=== PATIENT | male | born 1985 | race American Indian/Alaskan Native ===

== ENCOUNTER 2016-09-14 17:29 | Emergency (ER) | payer MEDICAID, OTHER ==
[2016-09-14 17:39] VITALS: BP 118/79; PULSE 91; RESP 18; TEMP 98.1; O2SAT 99
--- NOTE | 2016-09-14 17:53 | ED PDOC ---
HPI: General Adult Time Seen by Provider: 09/14/16 17:35 Chief Complaint (Nursing): Syncope Chief Complaint (Provider): near syncope History Per: Patient (31 y/o male here with near syncope that occurred today 1 hour prior to ED arrival at work. States he had not eaten today and felt dizzy/ fell and struck head. Did not lose consciousness. Currently notes mild headache. Denies any chest pain/palpitations. Admits thc today. Cocaine last used 1 year ago. No recent alcohol use.) Past Medical History Reviewed: Historical Data, Nursing Documentation, Vital Signs Vital Signs: Last Vital Signs Temp 98.1 F 09/14/16 17:36 Pulse 91 H 09/14/16 17:36 Resp 18 09/14/16 17:36 BP 118/79 09/14/16 17:36 Pulse Ox 99 09/14/16 19:31 - Family History Family History: States: No Known Family Hx - Home Medications Home Medications: Ambulatory Orders Medication Instructions Recorded No Known Home Med 09/14/16 - Allergies Allergies/Adverse Reactions: Allergies Allergy/AdvReac Type Severity Reaction Status Date / Time No Known Allergies Allergy Verified 12/17/14 10:57 Review of Systems ROS Statement: Except As Marked, All Systems Reviewed And Found Negative Neurological: Positive for: Dizziness Physical Exam - Reviewed Nursing Documentation Reviewed: Yes Vital Signs Reviewed: Yes - Physical Exam Appears: Positive for: Well, Non-toxic, No Acute Distress Head Exam: Positive for: ATRAUMATIC, NORMAL INSPECTION, NORMOCEPHALIC Skin: Positive for: Normal Color, Warm, DRY Eye Exam: Positive for: EOMI, Normal appearance, PERRL ENT: Positive for: Normal ENT Inspection Neck: Positive for: Normal, Painless ROM Cardiovascular/Chest: Positive for: Regular Rate, Rhythm Respiratory: Positive for: CNT, Normal Breath Sounds Gastrointestinal/Abdominal: Positive for: Normal Exam, Bowel Sounds, Soft Back: Positive for: Normal Inspection Extremity: Positive for: Normal ROM Neurologic/Psych: Positive for: Alert, Oriented - Laboratory Results Result Diagrams: 09/14/16 18:20 09/14/16 18:20 - ECG O2 Sat by Pulse Oximetry: 99 - Progress ED Course And Treament: EKG: NSR 75 bpm no ectopy no acute changes J pt elevation reviewed with Dr. Stauffer TDAP 0.5 ML IM X 1 DOSE NS 1 LITER WIDE OPEN HEAD CT: FINDINGS: BRAIN: No significant acute abnormality identified. No acute hemorrhage seen within the brain. No acute extra-axial fluid collections visualized. No evidence of significant mass effect within the brain. Normal hernandez-white matter differentiation. VENTRICLES: No evidence of significant hydrocephalus. BONES/JOINTS: No acute fractures or other acute bony abnormality noted. SOFT TISSUES: Mild soft tissue swelling in the left frontal scalp laterally. SINUSES: Visualized paranasal sinuses appear clear. MASTOID AIR CELLS: Mastoid air cells appear clear. IMPRESSION: - No evidence of acute intracranial injury or fractures. - See above for remaining findings. CXR: NAD Disposition - Clinical Impression Clinical Impression: Near syncope, Laceration of head - Patient ED Disposition Is Patient to be Admitted: No - Disposition Referrals: [facility] [Outside] Disposition: Routine/Home Disposition Time: 20:00 Condition: FAIR Additional Instructions: F/U WITH ED OR PMD IN 7 TO 10 DAYS FOR REMOVAL OF ZUHAIR. Instructions: Near Syncope (ED), Staple Care (ED), Head Injury (ED) Forms: [facility] ED School/Work Excuse Procedure: Wound Repair - Time Performed Time Performed: 19:00 - Time Out Time Out: Site verified - Consent Obtained Consent obtained: Verbal - Performed by Performed by: Mid-level Provider - Indications Indication(s):: Laceration - Location Location:: Posterior, Scalp Dimensions Length cm: 1.5CM - Anesthetic Technique Local/Regional Anesthetic:: Lidocaine 2% - Complexity Complexity:: Simple (one layer) - Wound repair method Sutures:: # (THREE ZUHAIR) - Patient tolerated procedure Patient Tolerated Procedure:: Well
[2016-09-14] MEDS ORDERED: Sodium Chloride 0.9% 1,000 ML IV STA (17:57)
[2016-09-14 18:25] LABS: BASO % 0.6 % (0.0-2.0); EOS # 0.1 K/uL (0.0-0.7); EOS % 0.9 % (0.0-4.0); HEMATOCRIT 47.4 % (35.0-51.0); LYMPH # 1.5 K/uL (1.0-4.3); LYMPH % 24.1 % (20.0-40.0); MEAN CELL VOLUME 93.6 fl (80.0-94.0); MEAN CORPUSCULAR HEMOGLOBIN 30.4 pg (27.0-31.0); MEAN CORPUSCULAR HGB CONC 32.5 g/dL (33.0-37.0); MEAN PLATELET VOLUME 10.3 fl (7.2-11.7); MONO # 0.4 K/uL (0.0-0.8); MONO % 6.7 % (0.0-10.0); NEUT # 4.2 K/uL (1.8-7.0); NEUT % 67.7 % (50.0-75.0); NRBC % 0.2 % (0.0-0.0); RED CELL DISTRIBUTION WIDTH 13.8 % (11.5-14.5); WHITE BLOOD COUNT 6.2 K/uL (4.8-10.8)
[2016-09-14 18:44] LABS: ALB/GLOB RATIO 1.4 (1.0-2.1); ALKALINE PHOSPHATASE 102 U/L (38-126); ALT/SGPT 33 U/L (21-72); AST/SGOT 45 U/L (17-59); BILIRUBIN,TOTAL 0.9 mg/dl (0.2-1.3); BLOOD UREA NITROGEN 15 mg/dl (9-20); CARBON DIOXIDE 30 mmol/L (22-30); CHLORIDE 98 mmol/L (98-107); GFR AFRICAN-AMERICAN > 60; GLUCOSE,RANDOM 101 mg/dL (75-110); MAGNESIUM 2.1 MG/DL (1.6-2.3); POTASSIUM 4.6 MMOL/L (3.6-5.0); SODIUM 146 mmol/l (132-148); TOTAL PROTEIN 8.5 G/DL (6.3-8.2)
[2016-09-14] MEDS ORDERED: Lidocaine 2% Inj (20ml) ONE (18:51)
[2016-09-14] MEDS ORDERED: Lidocaine 2% Inj (20ml) SC ONE (18:53)
[2016-09-14] MEDS ORDERED: TDAP Vaccine 0.5 mL Syr IM ONE (18:53)
--- NOTE | 2016-09-14 19:28 | CT ---
EXAM: CT Head Without Intravenous Contrast. CLINICAL HISTORY: 31 years old, male; Injury or trauma and signs and symptoms; Fall; Initial encounter; Blunt trauma (contusions or hematomas); With loss of consciousness; Loss of consciousness for 30 minutes or less; Dizziness; Additional info: Head injury TECHNIQUE: Axial computed tomography images of the head/brain without intravenous contrast. This CT exam was performed using one or more of the following dose reduction techniques: automated exposure control, adjustment of the mA and/or kV according to patient size, and/or use of iterative reconstruction technique. Coronal and sagittal reformatted images were created and reviewed. EXAM DATE/TIME: 09/14/2016 5:55 PM COMPARISON: No relevant prior studies available. FINDINGS: BRAIN: No significant acute abnormality identified. No acute hemorrhage seen within the brain. No acute extra-axial fluid collections visualized. No evidence of significant mass effect within the brain. Normal hernandez-white matter differentiation. VENTRICLES: No evidence of significant hydrocephalus. BONES/JOINTS: No acute fractures or other acute bony abnormality noted. SOFT TISSUES: Mild soft tissue swelling in the left frontal scalp laterally. SINUSES: Visualized paranasal sinuses appear clear. MASTOID AIR CELLS: Mastoid air cells appear clear. IMPRESSION: - No evidence of acute intracranial injury or fractures. - See above for remaining findings.
--- NOTE | 2016-09-15 11:22 | RAD ---
HISTORY: Dizziness. Technique: Single view portable semi erect @ 18:06. COMPARISON: None. FINDINGS: LUNGS: No active pulmonary disease. PLEURA: No significant pleural effusion identified, no pneumothorax apparent. CARDIOVASCULAR: Normal. OSSEOUS STRUCTURES: No significant abnormalities. VISUALIZED UPPER ABDOMEN: Normal. OTHER FINDINGS: None. IMPRESSION: No active disease.
--- NOTE | 2016-09-15 18:56 | CARD ---
APPROVED REPORT EKG Measurement Heart [id number] <Conclusion> Normal sinus rhythm with sinus arrhythmia Minimal voltage criteria for LVH, may be normal variant Borderline ECG
== END 2016-09-14 20:18 | disposition home or self-care (01) ==
LOC: H.ER 17:29
DX: R55 Syncope and collapse (principal); S09.90XA Unspecified injury of head, initial encounter; W19.XXXA Unspecified fall, initial encounter; Y92.89 Other specified places as the place of occurrence of the external cause

== ENCOUNTER 2016-09-21 22:26 | Emergency (ER) | payer OTHER, MEDICAID ==
[2016-09-21 22:47] VITALS: BP 132/62; PULSE 55; RESP 16; TEMP 97.6; O2SAT 99
--- NOTE | 2016-09-21 22:57 | ED PDOC ---
HPI: Wound Care - HPI Time Seen by Provider: 09/21/16 22:53 Chief Complaint (Nursing): Suture/Staple Removal Chief Complaint (Provider): STAPLE REMOVAL History Per: Patient (31 Y/O MALE HERE FOR STAPLE REMOVAL. HAS HAD ZUHAIR PLACED 1 WEEK AGO AFTER HEAD INJURY S/P NEAR-SYNCOPE. PATIENT DENIES ANY REPEAT EPISODES. PLANS TO F/U WITH [facility] BUT HAS NOT.) Past Medical History Reviewed: Historical Data, Nursing Documentation, Vital Signs Vital Signs: Last Vital Signs Temp 97.6 F 09/21/16 22:45 Pulse 55 L 09/21/16 22:45 Resp 16 09/21/16 22:45 BP 132/62 09/21/16 22:45 Pulse Ox 99 09/21/16 22:45 - Family History Family History: States: No Known Family Hx - Immunization History Hx Tetanus Toxoid Vaccination: No Hx Influenza Vaccination: No Hx Pneumococcal Vaccination: No - Home Medications Home Medications: Ambulatory Orders Medication Instructions Recorded No Known Home Med 09/14/16 - Allergies Allergies/Adverse Reactions: Allergies Allergy/AdvReac Type Severity Reaction Status Date / Time No Known Allergies Allergy Verified 12/17/14 10:57 Review of Systems ROS Statement: Except As Marked, All Systems Reviewed And Found Negative Physical Exam - Reviewed Nursing Documentation Reviewed: Yes Vital Signs Reviewed: Yes - Physical Exam Appears: Positive for: Well, Non-toxic, No Acute Distress Head Exam: Positive for: NORMAL INSPECTION, NORMOCEPHALIC. Negative for: ATRAUMATIC (THREE ZUHAIR INTACT. WOUND CLEAN/NO SIGNS OF ERYTHEMA) Skin: Positive for: Normal Color, Warm, DRY Eye Exam: Positive for: EOMI, Normal appearance, PERRL ENT: Positive for: Normal ENT Inspection Neck: Positive for: Normal, Painless ROM Cardiovascular/Chest: Positive for: Regular Rate, Rhythm Respiratory: Positive for: CNT, Normal Breath Sounds Gastrointestinal/Abdominal: Positive for: Normal Exam, Bowel Sounds, Soft Back: Positive for: Normal Inspection Extremity: Positive for: Normal ROM Neurologic/Psych: Positive for: Alert, Oriented - ECG O2 Sat by Pulse Oximetry: 99 - Progress ED Course And Treament: VERBAL CONSENT PRIOR TO PROCEDURE ZUHAIR REMOVED WITHOUT DIFFICULTY. Disposition - Clinical Impression Clinical Impression: Removal of staple - Patient ED Disposition Is Patient to be Admitted: No - Disposition Referrals: [facility] [Outside] Disposition: Routine/Home Disposition Time: 22:58 Condition: FAIR Instructions: Staple Care (ED)
== END 2016-09-21 23:00 | disposition home or self-care (01) ==
LOC: H.ER 22:26
DX: Z48.02 Encounter for removal of sutures (principal)

== ENCOUNTER 2017-06-04 23:39 | Emergency (ER) | payer SELFPAY ==
[2017-06-04 23:50] VITALS: BMI 20.7
[2017-06-04 23:56] VITALS: BP 145/96; PULSE 67; RESP 16; TEMP 98; O2SAT 100
[2017-06-05] MEDS ORDERED: Lidocaine 2% w Epi 1:100,000 Inj IJ ONE ×2 (00:19→00:25)
--- NOTE | 2017-06-05 01:21 | ED PDOC ---
HPI: Wound Care - HPI Time Seen by Provider: 06/05/17 00:20 Chief Complaint (Nursing): Abnormal Skin Integrity Chief Complaint (Provider): Wound Repair History Per: Patient History Of Present Illness: 32 year old male presents to ED with complaints of a facial laceration sustained x2 hours ago and has no past medical history. Patient states that he attempted to jump over a fence and landed on his chin. (-) LOC. Denies EtOH use. Confirms he has no trouble opening/closing jaw. PCP: TBD Exam Limitations: no limitations Onset/Duration Of Symptoms: Hrs (x2) Current Symptoms Are (Timing): Still Present Location Of Injury: Posterior: Face (Chin) Past Medical History Reviewed: Historical Data, Nursing Documentation, Vital Signs Vital Signs: Last Vital Signs Temp 98.0 F 06/04/17 23:50 Pulse 67 06/04/17 23:50 Resp 16 06/04/17 23:50 BP 145/96 H 06/04/17 23:50 Pulse Ox 100 06/04/17 23:50 - Medical History PMH: No Chronic Diseases - Family History Family History: States: No Known Family Hx - Living Arrangements Living Arrangements: With Family - Social History Alcohol: Occasional - Immunization History Hx Tetanus Toxoid Vaccination: No Hx Influenza Vaccination: No Hx Pneumococcal Vaccination: No - Home Medications Home Medications: Ambulatory Orders Medication Instructions Recorded No Known Home Med 09/14/16 - Allergies Allergies/Adverse Reactions: Allergies Allergy/AdvReac Type Severity Reaction Status Date / Time No Known Allergies Allergy Verified 06/04/17 23:50 Review of Systems ROS Statement: Except As Marked, All Systems Reviewed And Found Negative Skin: Positive for: Other (laceration to chin) Neurological: Negative for: Other ((-) LOC) Physical Exam - Reviewed Nursing Documentation Reviewed: Yes Vital Signs Reviewed: Yes - Physical Exam Appears: Positive for: Non-toxic, No Acute Distress Head Exam: Negative for: ATRAUMATIC (2 cm laceration to chin) Skin: Positive for: Normal Color, Warm, Dry Eye Exam: Positive for: Normal appearance Cardiovascular/Chest: Positive for: Regular Rate, Rhythm. Negative for: Murmur Respiratory: Negative for: Respiratory Distress Neurologic/Psych: Positive for: Alert, Oriented. Negative for: Motor/Sensory Deficits - ECG O2 Sat by Pulse Oximetry: 100 (RA) Pulse Ox Interpretation: Normal Procedure: Wound Repair - Time Performed Time Performed: 00:25 - Time Out Time Out: Side verified, Site verified, Patient ID confirmed, Sterile procedures obs. - Consent Obtained Consent obtained: Verbal - Performed by Performed by: Mid-level Provider - Indications Indication(s):: Laceration - Location Location:: Chin Shape:: Linear Dimensions Length cm: 2 - Anesthetic Technique Local/Regional Anesthetic:: Lidocaine 2% w/epi - Debris Debris:: None - Irrigated Irrigated with ml of normal saline: 150 - Complexity Complexity:: Simple (one layer) - Wound repair method Sutures:: # (5), Size (6:O), Type (proline), Technique (interrupted) - Patient tolerated procedure Patient Tolerated Procedure:: Well Medical Decision Making Medical Decision Makin Initial impression: laceration Initial plan: * wound repair Scribe Attestation: Documented by Jany Montoya acting as a scribe for Prateek Zepeda PA-C. MD Scribe Attestation: All medical record entries made by the Scribe were at my direction and personally dictated by me. I have reviewed the chart and agree that the record accurately reflects my personal performance of the history, physical exam, medical decision making, and the department course for this patient. I have also personally directed, reviewed, and agree with the discharge instructions and disposition. Disposition - Clinical Impression Clinical Impression: Laceration - Patient ED Disposition Is Patient to be Admitted: No - Disposition Disposition: Routine/Home Disposition Time: 02:00 Condition: FAIR Additional Instructions: return to ED /f/u with pmd in 5 days for removal of sutures Instructions: Care For Your Stitches (ED), Laceration (ED) Forms: [employer] (Italian)
== END 2017-06-05 02:00 | disposition home or self-care (01) ==
LOC: H.ER 23:39
DX: S01.81XA Laceration without foreign body of other part of head, initial encounter (principal); W19.XXXA Unspecified fall, initial encounter; Y92.89 Other specified places as the place of occurrence of the external cause

== ENCOUNTER 2017-06-09 20:21 | Emergency (ER) | payer SELFPAY ==
[2017-06-09 20:21] VITALS: BMI 20.7
[2017-06-09 20:34] VITALS: BP 122/71; PULSE 66; RESP 14; TEMP 98; O2SAT 95
--- NOTE | 2017-06-09 20:47 | ED PDOC ---
HPI: Wound Care - HPI Time Seen by Provider: 06/09/17 20:38 Chief Complaint (Nursing): Suture/Staple Removal Chief Complaint (Provider): suture removal History Per: Patient Exam Limitations: no limitations Additional Complaint(s): 32 y/o male presents to the ED for suture removal of laceration to chin that was repaired 5 days ago. Patient denies any drainage or bleeding from the wound. Tetanus up to date. Past Medical History Reviewed: Historical Data, Nursing Documentation, Vital Signs Vital Signs: Last Vital Signs Temp 98 F 06/09/17 20:31 Pulse 66 06/09/17 20:31 Resp 14 06/09/17 20:31 BP 122/71 06/09/17 20:31 Pulse Ox 95 06/09/17 20:31 - Medical History PMH: No Chronic Diseases - Surgical History Surgical History: No Surg Hx - Family History Family History: States: No Known Family Hx - Living Arrangements Living Arrangements: With Family - Social History Current smoker - smoking cessation education provided: Yes ("sometimes") Alcohol: Occasional Drugs: Denies - Immunization History Hx Tetanus Toxoid Vaccination: Yes - Home Medications Home Medications: Ambulatory Orders Medication Instructions Recorded No Known Home Med 09/14/16 - Allergies Allergies/Adverse Reactions: Allergies Allergy/AdvReac Type Severity Reaction Status Date / Time No Known Allergies Allergy Verified 06/09/17 20:30 Review of Systems ROS Statement: Except As Marked, All Systems Reviewed And Found Negative Constitutional: Negative for: Fever Skin: Positive for: Other (chin laceration - needs sutures removed) Physical Exam - Reviewed Nursing Documentation Reviewed: Yes Vital Signs Reviewed: Yes - Physical Exam Appears: Positive for: Well, Non-toxic, No Acute Distress Skin: Positive for: Warm, Dry ENT: Positive for: Other (Well healed sutured laceration to chin with no infection noted) Neurologic/Psych: Positive for: Alert, Oriented (x3) - ECG O2 Sat by Pulse Oximetry: 95 (RA) Pulse Ox Interpretation: Normal Medical Decision Making Medical Decision Making: Time: 20:46 Impression: 32 year old here for suture removal. 5 sutures were removed without difficulty. Patient given wound care instructions. Scribe Attestation: Documented by Salvador Zepeda acting as a scribe for Amanda Hernandez MD. MD [place] Attestation: All medical record entries made by the Scribe were at my direction and personally dictated by me. I have reviewed the chart and agree that the record accurately reflects my personal performance of the history, physical exam, medical decision making, and the department course for this patient. I have also personally directed, reviewed, and agree with the discharge instructions and disposition. Disposition - Clinical Impression Clinical Impression: Removal of suture - Patient ED Disposition Is Patient to be Admitted: No Counseled Patient/Family Regarding: Need For Followup - Disposition Referrals: [facility] [Outside] Disposition: Routine/Home Disposition Time: 20:46 Condition: STABLE Additional Instructions: Keep area clean and dry. Follow up as needed with primary care doctor. Instructions: Stitches Removal (ED) Forms: [employer] (Kenyan)
== END 2017-06-09 20:53 | disposition home or self-care (01) ==
LOC: H.ER 20:21
DX: Z48.02 Encounter for removal of sutures (principal)